=== PATIENT | female | born 1975 | race Caucasian/White ===

== ENCOUNTER 2020-05-14 08:56 | Outpatient (CLI) | payer OTHER, SELFPAY | END 2020-05-14 08:57 | disposition home or self-care (01) | PROVIDERS: PCP Nurse Practitioner Family; Visit Provider Obstetrics & Gynecology | DX: Z01.812 Encounter for preprocedural laboratory examination (principal) | CPT/HCPCS: 36415; 86850; 86900; 86901 ==

== ENCOUNTER 2020-05-26 03:19 | Outpatient (CLI) | payer OTHER, SELFPAY ==
[2020-05-27 19:21] LABS: SARS-CoV-2 RNA PCR Negative
== END 2020-05-26 03:20 | disposition home or self-care (01) ==
LOC: ANHCOVIDDT 03:20
PROVIDERS: Visit Provider Obstetrics & Gynecology
DX: Z01.812 Encounter for preprocedural laboratory examination (principal); Z11.59 Encounter for screening for other viral diseases
CPT/HCPCS: 87635; C9803; U0003

== ENCOUNTER 2020-05-28 01:37 | Day surgery (SDC) | payer OTHER, SELFPAY ==
[2020-05-13 15:01] VITALS: BMI 26.2
--- NOTE | 2020-05-27 13:46 | WPDANESEPPF ---
Anes - Initial Pre Proc Eval Procedure: Operation Date: 05/28/20 10:30 Proposed Procedures p Total Laparoscopic Hysterectomy, Bilateral Salpingectomy - Lou Renteria MD Date/Time: 05/27/20 13:46 Surgeon: Lou Renteria MD Pre Op Diagnosis: Abnormal Uterine And Vaginal Bleeding Patient Data Age: 44 Gender: F Height: 1.63 m Weight: 69.4 kg Allergies Allergy/AdvReac Type Severity Reaction Status Date / Time PROCHLORPERAZINE EDISYLATE Allergy Severe Muscle Pain Uncoded 05/13/20 14:55 PROCHLORPERAZINE MALEATE Allergy Severe Muscle Pain Uncoded 05/13/20 14:55 Home Medications Medication Instructions Recorded Confirmed Type Flonase Sensimist 05/13/20 History aripiprazole [Abilify] 5 mg PO HS 05/13/20 05/28/20 History buspirone mg 05/13/20 History duloxetine 60 mg PO DAILY 05/13/20 05/28/20 History multivitamin [Daily Multi-Vitamin] tablet 05/13/20 History oxybutynin chloride 5 mg PO BID 05/13/20 05/28/20 History sertraline 200 mg PO DAILY 05/13/20 05/28/20 History Patient hx anesthesia problems: none Family hx anesthesia problems: none PMFSH Past Medical History Medical History (Updated 05/27/20 @ 13:47 by Lamonte Zhegn MD) Abnormal uterine bleeding Anxiety Depression Endometriosis Social History Social History Smoking status: Never smoker Alcohol intake: current Alcohol use details: JUST DRINK A FEW TIMES A MONTH Substance use: never Substance use type: does not use Living arrangements: with family Gender identity (if verbalized by the patient): Female Spiritual care concerns: No Anes - Eval Final PreProcedure Day of Procedure 05/27/20 13:46 Patient weight: overweight Heart: regular rate and rhythm Lungs: clear to auscultation and normal air movement Airway: Mallampati scale class II Neurological: alert and oriented Last oral intake: >/= 8 hours ASA classification: II Emergent: no Anesthetic plan: proceed Anesthesia type and monitoring: general ETT Informed Consent: The patient's anesthetic plan and its attendant risks and benefits were discussed with the patient/family/POA. Questions were solicited and answers provided to the satisfaction of the patient/family/POA.
[2020-05-28] VITALS (13 sets, daily range): BP systolic 93–116; BP diastolic 44–71; PULSE 82–107; RESP 10–20; TEMP 36.6–37.1; O2SAT 92–100
--- NOTE | 2020-05-28 09:04 | WPDHPUPDATE1 ---
History and Physical Update Update Date/Time: 05/28/20 09:04 History and Physical has been reviewed, including an updated exam of the patient. There are NO changes in the patient's condition. Risks, benefits, and alternatives have been discussed and questions answered. Patient agrees to proceed with procedure.
[2020-05-28] MEDS: LACTATED RINGERS 1,000 ML 30 ML IV CONT ×2 (09:15→11:38)
[2020-05-28] MEDS: ACETAMINOPHEN 500 MG TABLET 1000 MG PO (09:30)
[2020-05-28] MEDS: KETOROLAC 15 MG/ML VIAL (*BKC) IV PUSH (09:30)
[2020-05-28] MEDS: ceFAZolin 2 GM/D5W 50 ML 2 GM/50 ML BAG IVPB (09:44)
--- NOTE | 2020-05-28 11:23 | SUR.OPER ---
EBL:50cc
--- NOTE | 2020-05-28 11:27 | SUR.OPER ---
URINE:300cc
--- NOTE | 2020-05-28 11:35 | P.OP_ITS ---
Procedure Note - Detailed Date of procedure: 05/28/20 Pre-op diagnosis: Abnormal Uterine And Vaginal Bleeding Severe menorrhagia Post-op diagnosis: same Procedure performed: Total laparoscopic hysterectomy bilateral salpingo- oophorectomy Description of procedure: The patient was taken to the operating room. She was prepped and draped in the dorsal lithotomy position. A speculum was placed in the vagina. The cervix was grasped with a tenaculum. Stay sutures were placed at 3 and 9:00 a.m. of 0 Vicryl. The stay sutures were brought through the Ludin up. The RUPERTO manipulator was placed in the vagina with a fixed Ludin cup. The cup was then pushed up around the cervix. The sutures were tied to the handle of the RUPERTO manipulator. A 5 mm incision was made on the abdominal skin of the left upper quadrant using a scalpel. A 5 mm trocar was inserted into the intra-abdominal cavity under direct visualization the scope. Pneumoperitoneum was achieved. An 11 mm incision was made in the left lower quadrant of the abdomen with a scalpel. A 11 mm trocar was inserted into the intra-abdominal cavity under direct visualization the scope. A 5 mm periumbilical incision was made. A 5 mm scope was placed into the intra-abdominal cavity under direct visualization of the scope. The ureters were identified. The ureters were observed to be away from the infundibulopelvic ligaments. These infundibulopelvic ligaments were isolated, cauterized, and transected with LigaSure cautery. This was done in a bilateral fashion. The para ovarian tissue along the pelvic sidewall was cauterized and transected in a bilateral fashion using the ligature cautery. The round ligaments were cauterized and transected bilaterally with LigaSure cautery. The broad ligaments were cauterized and transected along the lateral a spects of the uterus down the level of the uterine arteries. A bladder flap was created using sharp and blunt dissection. The ureters were dissected out bilaterally down to the level of the uterine arteries. The could be visualized from the pelvic brim down the uterine arteries. Staying very close to the cervix the parametrium was cauterized transected in a stepwise fashion down to the level of the Ludin cup. The Bladder flap was moved distally over the Ludin cup using sharp and blunt dissection. The cup was visualized and a complete 360 degree papillary around the cervix. An incision was made with unipolar cautery down under the Ludin cup creating a colpotomy incision all the way around the cervix. The uterus tubes and ovaries were taken out through the vagina. A pneumo occluder was placed in the vagina. The vagina was closed with 0 V lock suture in a running fashion. The ureters were identified again and found to be intact elevated and the uterine arteries. The pelvis was irrigated with a copious amount of antibiotic irrigation. The pneumoperitoneum was reduced. The trocars were removed. The skin was closed subcuticular 4 Monocryl covered with Dermabond. The pneumo occluder was removed from the vagina. The vagina was irrigated with Betadine. The patient tolerated the procedure well. She was taken to the recovery room in stable condition. Sponge lap and needle counts were correct x2. Anesthesia: GETA Surgeon: Lou Renteria MD Estimated blood loss (mL): 100 Drains: No Packing: No Pathology: yes Complications: No immediate complications Condition: stable Disposition: PACU Findings: Grossly normal-appearing uterus tubes and ovaries.
[2020-05-28] MEDS: ONDANSETRON INJ 4 MG/2 ML VIAL IV PUSH (12:46)
[2020-05-28] MEDS: MORPHINE SULFATE 2 MG/ML INJ IV PUSH (14:09)
[2020-05-28] MEDS: LACTATED RINGERS 1,000 ML 125 ML IV CONT (14:11)
--- NOTE | 2020-05-28 15:16 | PC.NURSE ---
1305-This patient, Liset Strange, was admitted to OB 2nd Floor Room 290-00. Patient/family oriented to hospital policies and general routines including ID bracelet, bed and alarms, visiting hours, pain management, procedures, bathroom and other care routines, personal items, smoking policy, room service/diet, and visiting hours. Valuables list has been completed. Information on how to activate the Rapid Response Team has been discussed. Patient/Family are encouraged to report perceived risks to care and to ask questions if they do not understand what they are told or what they should do.
[2020-05-28] MEDS: OXYBUTYNIN CHLORIDE 5 MG TABLET PO (17:32)
[2020-05-28] MEDS: IBUPROFEN 600 MG TABLET PO (17:35)
[2020-05-28] MEDS: ARIPiprazole 5 MG TABLET PO (19:48)
[2020-05-28] MEDS: KETOROLAC 30 MG/ML VIAL (*BKC) IV PUSH (21:31)
[2020-05-29] VITALS: BP 113/64; PULSE 80; RESP 16; TEMP 36.7; O2SAT 98
[2020-05-29] MEDS: MORPHINE SULFATE 2 MG/ML INJ IV PUSH (00:14)
[2020-05-29 05:18] VITALS: BP 105/56; PULSE 99; RESP 16; TEMP 37; O2SAT 97
[2020-05-29 08:20] VITALS: BP 112/69; PULSE 92; RESP 18; TEMP 37.4; O2SAT 97
[2020-05-29] MEDS: SERTRALINE HCL 50 MG TABLET 200 MG PO (08:25)
[2020-05-29] MEDS: DULoxetine HCL 60 MG CAPSULE.DR PO (08:25)
[2020-05-29] MEDS: IBUPROFEN 600 MG TABLET PO (08:25)
[2020-05-29] MEDS: OXYBUTYNIN CHLORIDE 5 MG TABLET PO (08:25)
--- NOTE | 2020-05-29 08:39 | PM.GYNPNOP ---
NEPHROLOGIST - A/P Postoperative Procedures: Procedures Operation Date: 05/28/20 10:30 Actual Procedures Side Surgeon p Total Laparoscopic Hysterectomy, Bilateral Salpingectomy, and bilateral oopherectomy Lou Renteria MD Postoperative day: 1 Postoperative status: doing well Postoperative plan: see orders Time Spent With Patient Time: Total time spent is greater than 50% in coordination of care (as documented) at patient's floor/unit and/or counseling patient: Time with patient: less than 15 minutes NEPHROLOGIST- PN:Subj Post-Op Subjective Date/time seen: 05/29/20 08:39 Subjective: patient reports feeling better, patient has no complaints and pain is well controlled Exam Const: General: healthy appearing, comfortable and no acute distress Resp: Auscultation: clear to auscultation bilaterally, no rales, no rhonchi and no wheezes Cardio: Rate: regular rate Heart sounds: no click, no murmurs and no rubs GI: Inspection: non-distended Auscultation: normal bowel sounds Extrem: General: normal to inspection, no pedal edema and no calf tenderness NEPHROLOGIST - PN: Obj Data Vital Signs Vital Signs: Vital Signs - 24 hr 05/28/20 09:37 05/28/20 11:38 05/28/20 11:50 Temperature 98.8 F 98.0 F Pulse Rate 86 106 H 91 Respiratory Rate 17 10 L Blood Pressure 114/70 112/57 L 116/71 Pulse Oximetry 99 100 96 05/28/20 12:05 05/28/20 12:23 05/28/20 12:35 Temperature Pulse Rate 91 106 H 99 Respiratory Rate 10 L 12 20 Blood Pressure 107/61 112/65 109/60 Pulse Oximetry 95 97 98 05/28/20 13:19 05/28/20 13:30 05/28/20 13:45 Temperature 97.9 F Pulse Rate 98 95 97 Respiratory Rate 16 16 16 Blood Pressure 108/63 101/59 L 98/55 L Pulse Oximetry 96 96 96 05/28/20 14:30 05/28/20 15:00 05/28/20 16:00 Temperature Pulse Rate 104 H 83 107 H Respiratory Rate 16 16 16 Blood Pressure 102/60 93/55 L 95/44 L Pulse Oximetry 94 92 96 05/28/20 20:01 05/29/20 00:00 07/30/20 05:18 Temperature 98.0 F 98.1 F 98.6 F Pulse Rate 82 80 99 Respiratory Rate 16 16 16 Blood Pressure 113/71 113/64 105/56 L Pulse Oximetry 97 98 97 Intake/Output Intake/Output: Intake & Output 05/26/20 05/27/20 05/28/20 05/29/20 23:59 23:59 23:59 23:59 Intake Total 1225 600 Output Total 600 1400 Balance 625 -800 Meds/Results Medications: Active Medications Generic Name Dose Route Start Last Admin Trade Name Freq PRN Reason Stop Dose Admin Hydrocodone Bitart/Acetaminophen 1 tab 05/28/20 12:57 05/29/20 08:26 Meeker 5-325 Mg PO 1 tab Q3H PRN Administration Pain Rated 5 or Less Hydrocodone Bitart/Acetaminophen 1 tab 05/28/20 12:57 05/28/20 17:34 Me[place] 10-325 Mg PO 1 tab Q3H PRN Administration Pain Rated 6 or Greater Aripiprazole 5 mg 05/28/20 21:00 05/28/20 19:48 Abilify PO 5 mg HS SOL Administration Duloxetine HCl 60 mg 05/29/20 09:00 05/29/20 08:25 Cymbalta PO 60 mg DAILY SOL Administration Lactated Ringer's 1,000 mls @ 125 mls/hr 05/28/20 13:55 05/29/20 05:22 Lr - Lactated Ringers Iv IV CONT Not Given .Q8H SOL Ibuprofen 600 mg 05/28/20 12:57 05/29/20 08:25 Motrin PO 600 mg Q6H PRN Administration Cramping Ketorolac Tromethamine 30 mg 05/28/20 12:57 05/28/20 21:31 Toradol Inj IV PUSH 06/02/20 12:58 30 mg Q6H PRN Administration Pain Rated 4-6 Morphine Sulfate 2 mg 05/28/20 13:51 05/29/20 00:14 Morphine Sulfate Inj IV PUSH 2 mg Q2H PRN Administration Pain Rated 7-10 Naloxone HCl 0.1 mg 05/28/20 12:57 Narcan IV PUSH Q2M PRN Respiratory rate less than 10 Oxybutynin Chloride 5 mg 05/28/20 17:00 05/29/20 08:25 Ditropan PO 5 mg BID SOL Administration Sertraline HCl 200 mg 05/29/20 09:00 05/29/20 08:25 Zoloft PO 200 mg DAILY SOL Administration
--- NOTE | 2020-05-29 09:51 | WPDANESPN ---
Anes - Prog Note Post-Op Date/Time: 05/29/20 09:51 Cardiovascular status: normal Respiratory status: normal Airway patency: baseline Mental status: baseline Post-Op hydration status: normal Vital Signs: Last Vital Signs Temp 37.4 C 05/29/20 08:20 Pulse 92 05/29/20 08:20 Resp 18 05/29/20 08:20 BP 112/69 05/29/20 08:20 Pulse Ox 97 05/29/20 08:20 I/O: Intake & Output 05/28/20 05/29/20 05/29/20 23:59 07:59 15:59 Intake Total 625 600 Output Total 300 1400 325 Balance 325 -800 -325 Post-procedural complaints: none Patient Feedback: Patient satisfied with anesthetic care.
== END 2020-05-29 12:13 | disposition home or self-care (01) ==
LOC: ANHSURGERY 08:38 → ANHOB2 13:08
PROVIDERS: PCP Nurse Practitioner Family; Visit Provider Obstetrics & Gynecology
PROC: 0UT9FZZ Resection of Uterus, Via Natural or Artificial Opening With Percutaneous Endoscopic Assistance (ICD-10-PCS; CPT 58571; principal; 2020-05-28 10:30)
DX: N93.9 Abnormal uterine and vaginal bleeding, unspecified (principal); N80.0 Endometriosis of uterus; N73.6 Female pelvic peritoneal adhesions (postinfective); D28.2 Benign neoplasm of uterine tubes and ligaments; N83.8 Other noninflammatory disorders of ovary, fallopian tube and broad ligament; D27.1 Benign neoplasm of left ovary; N83.02 Follicular cyst of left ovary; N83.01 Follicular cyst of right ovary; F41.8 Other specified anxiety disorders
CPT/HCPCS: 58571; 88307; 99199; A9270; J0690; J1100; J1170; J1885; J2250; J2270; J2405; J2704; J2710; J3010; J7120